=== PATIENT | male | born 1945 | race Caucasian/White ===

== ENCOUNTER → 2017-01-05 | Outpatient (CLI) | payer MEDICARE, OTHER ==
--- NOTE | ~2017-01-05 | ENPV ---
Carotid Duplex Study Demographics Patient Name ASHLEY KEATING Date of Study 01/05/2017 Patient Number [id number] Gender Male Date of 1945 Age 71 Visit Number [id number] Height Accession Number [id number] Weight Room Number BSA BMI Referring Jaylen Elizalde Interpreting Micah Cowart MD Physician Physician Physician Ordering Physician Jaylen Elizalde Director Of Therapy Services Spiritual Minister Lucía Cortez, RT,RVT,RDCS Conclusions Summary Moderate to high grade left ICA stenosis- recommend CTA if symptomatic. Procedure Type of Study: Cerebral:Carotid, Carotid Doppler Bilateral. Appropriate Use Criteria:9 Patient Status:Routine. Technical Quality:Adequate visualization. Velocities are measured in cm/s ; Diameters are measured in cm Carotid Right Measurements Carotid Left Measurements + +--------+--------+ + + + +--------+- -------+ + + !Location !PSV !EDV !Angle !%Stenosis ! !Location !PSV !E DV !Angle !%Stenosis ! + +--------+--------+ + + + +--------+- -------+ + + !Prox CCA !87 !16 !52 ! ! !Prox CCA !99 !2 0 !60 !1-39% ! + +--------+--------+ + + + +--------+- -------+ + + !Dist CCA !99 !23 !52 ! ! !Dist CCA !72 !1 8 !60 !1-39% ! + +--------+--------+ + + + +--------+- -------+ + + !Bulb ! ! ! !1-39% ! !Prox ICA !193 !5 3 !60 !60-79% ! + +--------+--------+ + + + +--------+- -------+ + + !Prox ICA !130 !43 !42 !40-59% ! !Mid ICA !182 !4 0 !60 !40-59% ! + +--------+--------+ + + + +--------+- -------+ + + !Mid ICA !138 !39 !60 !40-59% ! !Dist ICA !163 !4 5 !60 !40-59% ! + +--------+--------+ + + + +--------+- -------+ + + !Dist ICA !84 !24 !60 !40-59% ! !Prox ECA !162 ! !60 !40-59% ! + +--------+--------+ + + + +--------+- -------+ + + !Prox ECA !78 ! !52 ! ! !Vertebral !42 ! !60 ! ! + +--------+--------+ + + + +--------+- -------+ + + !Vertebral !26 ! !52 ! ! + +--------+--------+ + + - There is antegrade vertebral flow noted on the right side. - There is antegrade verte bral flow noted on the left side. - Add'l Measurements:Subclavian PRV 73 cm/sICAPSV/CCAPSV - Add'l Measurements:Subcl rohini PRV 131 cm/sICAPSV/CCAPSV 1.58.ICAEDV/CCAEDV 2.7. 1.96.ICAEDV/CCAEDV 2.64. Signature dtt: ROBERTO BELTRAN dtd: 01/05/17 1220
== END | disposition disaster alternative care site (69) ==
LOC: GCAR 12:00
DX: I63.9 Cerebral infarction, unspecified (principal); I65.22 Occlusion and stenosis of left carotid artery